=== PATIENT | female | born 1995 | race American Indian/Alaskan Native ===

== ENCOUNTER 2021-10-15 14:26 | Emergency (ER) | payer SELFPAY ==
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
== END 2021-10-15 16:13 | disposition home or self-care (01) ==
LOC: ED 14:26
DX: S29.012A Strain of muscle and tendon of back wall of thorax, initial encounter (principal); V89.2XXA Person injured in unspecified motor-vehicle accident, traffic, initial encounter; Y93.89 Activity, other specified; Y92.89 Other specified places as the place of occurrence of the external cause; Y99.8 Other external cause status
CPT/HCPCS: 99282